=== PATIENT | male | born 1940 | race Caucasian/White ===

== ENCOUNTER 2020-12-09 08:08 | Observation (INO) ==
[2020-12-09] MEDS ORDERED: ASPIRIN 325 MG TABLET PO STA (08:27)
[2020-12-09 08:43] LABS: Basophils % 0.3 % (0.0-0.8); Eosinophils # 0.1 10*3/uL (0.0-0.87); Eosinophils % 0.5 % (0.00-10.9); Hematocrit 38.2 VOL% (42.0-52.0); Hemoglobin 12.5 GM/DL (14.0-18.0); Immature Granulocytes % 0.9 %; Immature Granulocytes Absolute 0.12 #; Lymphocytes % 14.4 % (21.2-54.2); Mean Corpuscular HGB Conc 32.7 GM/DL (32-36); Mean Platelet Volume 9.6 FL (9.6-12.0); Monocytes % 7.6 % (1.7-12.7); Neutrophils % 76.3 % (38.7-73.9); Platelet Count 145 T/CUMM (130-400); Red Cell Distribution Width 14.3 % (9.3-17.3); White Blood Count 13.9 T/CUMM (4-12)
[2020-12-09] MEDS: NITROGLYCERIN SL 0.4 MG TABLET SL PRN ×2 (08:45→08:54)
[2020-12-09] MEDS ORDERED: LABETALOL 20 MG/4 ML SYRINGE IV STA (08:52)
[2020-12-09 09:05] LABS: Calcium 8.4 MG/DL (8.5-10.1); Osmolality,Calculated 271.2 MOS/KG (273-304); Potassium 3.8 MMOL/L (3.5-5.1)
[2020-12-09] MEDS ORDERED: MORPHINE 4 MG/1 ML VIAL IV STA ×2 (09:37→11:29)
[2020-12-09] MEDS ORDERED: ONDANSETRON 4 MG/2 ML VIAL IV STA (09:38)
[2020-12-09] MEDS ORDERED: ONDANSETRON 4 MG/2 ML VIAL ONE (09:39)
[2020-12-09 11:35] LABS: INR 1.7; PT Patient Result 18.8 SECS (10.5-12.0)
[2020-12-09] MEDS ORDERED: hydrALAZINE 20 MG/1 ML VIAL IV PRN (11:52)
[2020-12-09] MEDS ORDERED: GLUCAGON 1 MG VIAL IM PRN (11:57)
[2020-12-09] MEDS ORDERED: DEXTROSE 50% 25 GM/50 ML VIAL IV PRN ×2 (11:57→12:14)
[2020-12-09] MEDS ORDERED: ALBUTEROL 2.5 MG/3 ML NEB RESP TX PRN (11:58)
[2020-12-09] MEDS ORDERED: DOCUSATE SODIUM 100 MG CAPSULE PO PRN (11:58)
[2020-12-09] MEDS ORDERED: ONDANSETRON 4 MG/2 ML VIAL IV PRN (11:58)
[2020-12-09] MEDS ORDERED: guaiFENesin/DM ER 600-30 MG TABLET PO PRN (11:58)
[2020-12-09] MEDS ORDERED: ACETAMINOPHEN 325 MG TABLET PO PRN (11:58)
[2020-12-09] MEDS ORDERED: FUROSEMIDE 20 MG TABLET PO PRN (12:18)
[2020-12-09] MEDS ORDERED: WARFARIN 3 MG TABLET PO ONE (14:07)
[2020-12-09] MEDS: GABAPENTIN 100 MG CAPSULE PO SCH ×2 (16:06→21:12)
[2020-12-09] MEDS ORDERED: HYDROmorphone 2 MG/1 ML VIAL IV PRN (16:49)
[2020-12-09] MEDS ORDERED: WARFARIN 5 MG TABLET PO SCH (18:00)
[2020-12-09] MEDS ORDERED: SIMVASTATIN 10 MG TABLET PO SCH (21:00)
[2020-12-09] MEDS ORDERED: LATANOPROST 0.005% OPH SOLN 2.5 ML BOTTLE BOTH EYES SCH (21:00)
[2020-12-10 04:26] LABS: Basophils % 0.3 % (0.0-0.8); Eosinophils # 0.2 10*3/uL (0.0-0.87); Eosinophils % 2.6 % (0.00-10.9); Hemoglobin 11.9 GM/DL (14.0-18.0); Immature Granulocytes % 0.8 %; Immature Granulocytes Absolute 0.07 #; Lymphocytes % 22.8 % (21.2-54.2); Mean Corpuscular HGB Conc 33.1 GM/DL (32-36); Mean Platelet Volume 9.9 FL (9.6-12.0); Neutrophils % 64.5 % (38.7-73.9); Platelet Count 132 T/CUMM (130-400); Red Cell Distribution Width 14.5 % (9.3-17.3); White Blood Count 8.6 T/CUMM (4-12)
[2020-12-10 04:38] LABS: INR 2.1; PT Patient Result 22.5 SECS (10.5-12.0)
[2020-12-10 04:56] LABS: Calcium 8.4 MG/DL (8.5-10.1); Osmolality,Calculated 269.1 MOS/KG (273-304); Potassium 3.9 MMOL/L (3.5-5.1); Risk Ratio 2.2; Thyroid Stimulating Hormone 3.83 uIU/ml (0.358-3.74); VLDL CHOLESTEROL 21.8 MG/DL
[2020-12-10] MEDS ORDERED: ASPIRIN EC 81 MG TABLET PO SCH (09:00)
[2020-12-10] MEDS ORDERED: PANTOPRAZOLE 40 MG TABLET PO SCH (09:00)
[2020-12-10] MEDS: GABAPENTIN 100 MG CAPSULE PO SCH (09:51)
[2020-12-10 12:16] VITALS: BP 145/65
[2020-12-10] MEDS ORDERED: WARFARIN 2.5 MG TABLET PO SCH (18:00)
[2020-12-11] MEDS ORDERED: WARFARIN 5 MG TABLET PO SCH (09:00)
[2020-12-11] MEDS ORDERED: WARFARIN 2.5 MG TABLET PO SCH (09:00)
== END 2020-12-10 14:18 | disposition home or self-care (01) ==
LOC: N.ED 08:08 → N.EDINP 08:08 → SUATTDRO 11:11 → N.TELES 12:10
PROVIDERS: ADMIT Hospitalist; ATTEND Internal Medicine